=== PATIENT | female | born 1945 | race Caucasian/White ===

== ENCOUNTER 2021-04-12 13:14 | Outpatient (RCR) | payer MEDICARE, OTHER | END 2021-06-29 | disposition home or self-care (01) | LOC: WSST | DX: R13.14 Dysphagia, pharyngoesophageal phase (principal) ==

== ENCOUNTER → 2021-05-01 | Outpatient (CLI) | payer MEDICARE, OTHER | LOC: COL.RAD 13:51 | DX: R13.14 Dysphagia, pharyngoesophageal phase (principal) ==